=== PATIENT | male | born 1955 | race Caucasian/White ===

== ENCOUNTER 2018-01-11 17:53 | Emergency (ER) | payer OTHER ==
[~2018-01-11] VITALS: Ht 175.3 cm; Wt 81.8 kg
[2018-01-11 17:56] VITALS: TEMP 98.1
[2018-01-11 18:44] LABS: COLLECTION METHOD CLEAN CATCH
[2018-01-11 19:13] LABS: MUCOUS Present /lpf; PH 5 (5-8); SQUAMOUS EPITHELIAL None Seen /hpf; URINE APPEARANCE Clear; URINE BACTERIA None Seen /hpf; URINE BILIRUBIN Negative (NEGATIVE); URINE BLOOD 1+ (NEGATIVE); URINE COLOR Yellow; URINE GLUCOSE Negative (NEGATIVE); URINE KETONE Negative (NEGATIVE); URINE LEUKOCYTE ESTERASE Negative (NEGATIVE); URINE NITRATE Negative (NEGATIVE); URINE PROTEIN(semi-quant) Negative (NEGATIVE); URINE RBC 0-2 /hpf; URINE UROBILINOGEN Negative (NEGATIVE)
[2018-01-11 19:16] VITALS: BP 128/78; PULSE 70
== END 2018-01-11 19:21 | disposition home or self-care (01) ==
LOC: COL.ER 17:53
PROVIDERS: Emergency Medicine
DX: S22.32XA Fracture of one rib, left side, initial encounter for closed fracture (principal); W08.XXXA Fall from other furniture, initial encounter; Y92.009 Unspecified place in unspecified non-institutional (private) residence as the place of occurrence of the external cause

== ENCOUNTER → 2019-04-02 | Outpatient (CLI) | payer OTHER | LOC: COL.RAD 08:04 | DX: Z01.812 Encounter for preprocedural laboratory examination (principal); K57.92 Diverticulitis of intestine, part unspecified, without perforation or abscess without bleeding; K76.9 Liver disease, unspecified; K57.32 Diverticulitis of large intestine without perforation or abscess without bleeding | CPT/HCPCS: Q9967 ==